=== PATIENT | female | born 1970 | race Caucasian/White ===

== ENCOUNTER → 2017-11-30 | Outpatient (CLI) | payer MEDICARE, MEDICAID | LOC: COL.RAD 13:03 | DX: R10.84 Generalized abdominal pain (principal); Z87.19 Personal history of other diseases of the digestive system; Z85.528 Personal history of other malignant neoplasm of kidney; Z90.49 Acquired absence of other specified parts of digestive tract; Z90.5 Acquired absence of kidney | CPT/HCPCS: Q9967 ==

== ENCOUNTER → 2017-12-29 | Outpatient (CLI) | payer MEDICARE, MEDICAID | LOC: COL.RAD 08:58 | DX: K85.90 Acute pancreatitis without necrosis or infection, unspecified (principal); K76.89 Other specified diseases of liver; R16.0 Hepatomegaly, not elsewhere classified; Z90.5 Acquired absence of kidney; Z90.49 Acquired absence of other specified parts of digestive tract; K82.9 Disease of gallbladder, unspecified ==

== ENCOUNTER → 2018-03-08 | Outpatient (CLI) | payer MEDICARE, MEDICAID ==
[~2018-03-08] VITALS: Ht 157.5 cm; Wt 154.7 kg
[~2018-03-08] MED LIST: ALBUTEROL0.83 MG/ML IH; BREO IH; CHANTIX 1MG1 MG PO; COREG 25MG25 MG/TAB PO; GLUCOPHAGE850 MG/TAB PO; MIRAPEX1.5 MG PO; NEURONTIN300 MG/CAP PO; PRINZIDE 12.5 M1 TAB PO; PROTONIX 40MG T40 MG PO; PROVENTIL0.09 MG/A1 IH; PROZAC40 MG PO; SYNTHROID0.075 MG/T PO
[2018-03-08 08:21] VITALS: BP 80/50; PULSE 72
== END ==
LOC: LIGHT 07:52
DX: E11.9 Type 2 diabetes mellitus without complications (principal); M79.1 Myalgia; E66.01 Morbid (severe) obesity due to excess calories; Z71.3 Dietary counseling and surveillance
CPT/HCPCS: G0463

== ENCOUNTER → 2018-04-12 | Outpatient (CLI) | payer MEDICARE, MEDICAID ==
[~2018-04-12] VITALS: Ht 157.5 cm; Wt 153.3 kg
[2018-04-12 10:31] VITALS: BP 90/60; PULSE 60
== END ==
LOC: LIGHT 04-03 14:14
DX: E88.81 Metabolic syndrome and other insulin resistance (principal); E11.9 Type 2 diabetes mellitus without complications; M79.10 Myalgia, unspecified site; E66.01 Morbid (severe) obesity due to excess calories; Z68.44 Body mass index [BMI] 60.0-69.9, adult; Z71.3 Dietary counseling and surveillance
CPT/HCPCS: G0463

== ENCOUNTER → 2018-04-24 | Outpatient (CLI) | payer MEDICARE, MEDICAID ==
[~2018-04-24] VITALS: Ht 157.5 cm; Wt 154.4 kg
== END ==
LOC: LIGHT 11:18
DX: E88.81 Metabolic syndrome and other insulin resistance (principal); E11.65 Type 2 diabetes mellitus with hyperglycemia; M79.10 Myalgia, unspecified site; E66.01 Morbid (severe) obesity due to excess calories; Z68.44 Body mass index [BMI] 60.0-69.9, adult; Z71.3 Dietary counseling and surveillance

== ENCOUNTER → 2018-05-17 | Outpatient (CLI) | payer MEDICARE, MEDICAID ==
[~2018-05-17] VITALS: Ht 157.5 cm; Wt 154.0 kg
[~2018-05-17] MED LIST changes: +FASTIN30 MG PO
[2018-05-17 10:01] VITALS: BP 124/70; PULSE 64
== END ==
LOC: LIGHT 09:48
DX: E88.81 Metabolic syndrome and other insulin resistance (principal); M79.10 Myalgia, unspecified site; E66.01 Morbid (severe) obesity due to excess calories; Z68.44 Body mass index [BMI] 60.0-69.9, adult; Z71.3 Dietary counseling and surveillance
CPT/HCPCS: G0463

== ENCOUNTER → 2018-06-21 | Outpatient (CLI) | payer MEDICARE, MEDICAID ==
[~2018-06-21] VITALS: Ht 157.5 cm; Wt 148.3 kg
[2018-06-21 13:47] VITALS: BP 100/70; PULSE 76
== END ==
LOC: LIGHT 13:32
DX: E88.81 Metabolic syndrome and other insulin resistance (principal); E11.65 Type 2 diabetes mellitus with hyperglycemia; M79.7 Fibromyalgia; E66.01 Morbid (severe) obesity due to excess calories; Z68.43 Body mass index [BMI] 50.0-59.9, adult; Z71.3 Dietary counseling and surveillance
CPT/HCPCS: G0463

== ENCOUNTER → 2018-07-04 | Outpatient (CLI) | payer MEDICARE, MEDICAID | LOC: COL.RAD 08:44 | DX: E11.9 Type 2 diabetes mellitus without complications (principal); M47.814 Spondylosis without myelopathy or radiculopathy, thoracic region; R91.8 Other nonspecific abnormal finding of lung field; R59.0 Localized enlarged lymph nodes; Z90.49 Acquired absence of other specified parts of digestive tract | CPT/HCPCS: Q9967 ==

== ENCOUNTER → 2018-09-06 | Outpatient (CLI) | payer MEDICARE, MEDICAID ==
[~2018-09-06] VITALS: Ht 157.5 cm; Wt 145.1 kg
[~2018-09-06] MED LIST changes: +LAMICTAL XR50 MG PO; -PROZAC40 MG PO; +PROZAC60 MG PO
[2018-09-06 10:20] VITALS: BP 118/72; PULSE 68
== END ==
LOC: LIGHT 08-02 14:48
DX: E88.81 Metabolic syndrome and other insulin resistance (principal); E11.65 Type 2 diabetes mellitus with hyperglycemia; M79.18 Myalgia, other site; E66.01 Morbid (severe) obesity due to excess calories; Z71.3 Dietary counseling and surveillance

== ENCOUNTER → 2018-10-04 | Outpatient (CLI) | payer MEDICARE, MEDICAID ==
[~2018-10-04] VITALS: Ht 157.5 cm; Wt 146.7 kg
[2018-10-04 10:12] VITALS: BP 114/70; PULSE 60
== END ==
LOC: LIGHT 10:01
DX: E88.81 Metabolic syndrome and other insulin resistance (principal); E11.65 Type 2 diabetes mellitus with hyperglycemia; M79.18 Myalgia, other site; E66.01 Morbid (severe) obesity due to excess calories; Z68.43 Body mass index [BMI] 50.0-59.9, adult; Z71.3 Dietary counseling and surveillance
CPT/HCPCS: G0463

== ENCOUNTER → 2018-11-01 | Outpatient (CLI) | payer MEDICARE, MEDICAID ==
[~2018-11-01] VITALS: Ht 157.5 cm; Wt 148.8 kg
[2018-11-01 14:43] VITALS: BP 106/66; PULSE 68
== END ==
LOC: LIGHT 14:24
DX: E88.81 Metabolic syndrome and other insulin resistance (principal); E11.65 Type 2 diabetes mellitus with hyperglycemia; M79.18 Myalgia, other site; E66.01 Morbid (severe) obesity due to excess calories; Z68.44 Body mass index [BMI] 60.0-69.9, adult; Z71.3 Dietary counseling and surveillance
CPT/HCPCS: G0463

== ENCOUNTER → 2018-12-06 | Outpatient (CLI) | payer MEDICARE, MEDICAID ==
[~2018-12-06] VITALS: Ht 157.5 cm; Wt 148.8 kg
[2018-12-06 16:22] VITALS: BP 106/64; PULSE 68
== END ==
LOC: LIGHT 15:59
DX: E88.81 Metabolic syndrome and other insulin resistance (principal); E11.65 Type 2 diabetes mellitus with hyperglycemia; M79.10 Myalgia, unspecified site; E66.01 Morbid (severe) obesity due to excess calories; Z68.44 Body mass index [BMI] 60.0-69.9, adult; Z71.3 Dietary counseling and surveillance
CPT/HCPCS: G0463

== ENCOUNTER → 2018-12-06 | Outpatient (CLI) | payer MEDICARE, MEDICAID | LOC: COL.RAD 08:18 | DX: M43.06 Spondylolysis, lumbar region (principal); K76.9 Liver disease, unspecified; R16.2 Hepatomegaly with splenomegaly, not elsewhere classified; Z87.19 Personal history of other diseases of the digestive system; Z90.5 Acquired absence of kidney; Z90.49 Acquired absence of other specified parts of digestive tract; Z96.642 Presence of left artificial hip joint | CPT/HCPCS: Q9967 ==

== ENCOUNTER → 2019-01-17 | Outpatient (CLI) | payer MEDICARE, MEDICAID ==
[~2019-01-17] VITALS: Ht 157.5 cm; Wt 148.8 kg
[~2019-01-17] MED LIST changes: +ADIPEX-P37.5 MG PO; -FASTIN30 MG PO; +TOPAMAX 25MG25 M1 PO
[2019-01-17 15:17] VITALS: BP 102/64; PULSE 80
== END ==
LOC: LIGHT 14:48
DX: E88.81 Metabolic syndrome and other insulin resistance (principal); E11.65 Type 2 diabetes mellitus with hyperglycemia; M79.18 Myalgia, other site; E66.01 Morbid (severe) obesity due to excess calories; Z68.43 Body mass index [BMI] 50.0-59.9, adult; Z71.3 Dietary counseling and surveillance
CPT/HCPCS: G0463

== ENCOUNTER → 2019-02-14 | Outpatient (CLI) | payer MEDICARE, MEDICAID ==
[~2019-02-14] VITALS: Ht 157.5 cm; Wt 149.9 kg
[~2019-02-14] MED LIST changes: +TOPAMAX50 MG PO
[2019-02-14 14:16] VITALS: BP 104/78; PULSE 76
== END ==
LOC: LIGHT 14:06
DX: E88.81 Metabolic syndrome and other insulin resistance (principal); E11.65 Type 2 diabetes mellitus with hyperglycemia; M79.18 Myalgia, other site; E66.01 Morbid (severe) obesity due to excess calories; Z68.44 Body mass index [BMI] 60.0-69.9, adult; Z71.3 Dietary counseling and surveillance
CPT/HCPCS: G0463

== ENCOUNTER 2019-04-22 07:28 | Day surgery (SDC) | payer MEDICARE, MEDICAID ==
[~2019-04-22] VITALS: Ht 157.5 cm; Wt 151.0 kg
[2019-04-22 08:24] VITALS: BP 132/90; PULSE 66; TEMP 97.7
[2019-04-22 09:10] VITALS: BP 135/95; PULSE 62
--- NOTE | 2019-04-22 09:10 | NUR ---
Pt arrived from procedure room awake, alert, and oriented. Ambulated easily from cart to chair and states she's already "ready to get going." VSS and WNL. Pt denies pain, n/v. Water and crackers brought per pt's request.
[2019-04-22 09:25] VITALS: BP 149/93; PULSE 93
--- NOTE | 2019-04-22 09:25 | NUR ---
Pt states that she is ready to go home. Educated pt that she should stay 30 mins post procedure for monitoring. She agrees. Andre brought per her request. denies n/v.
[2019-04-22 09:40] VITALS: BP 150/62; PULSE 85
--- NOTE | 2019-04-22 09:40 | NUR ---
Reviewed discharge information with patient. She has no concerns and expresses understanding of the information. Advised pt on how to contact someone if concerns/questions do arise.
[2019-04-22 09:45] VITALS: BP 127/74; PULSE 85
--- NOTE | 2019-04-22 09:53 | NUR ---
Pt ready to go home, and she meets discharge criteria. BP rechecked and WNL. Pt discharged via wheelchair with RN with Jonathan, colt. Reviewed with patient that H.Pylori was negative. Pt has no further questions or concerns at this time.
== END 2019-04-22 09:55 | disposition home or self-care (01) ==
LOC: SDCO 07:28
DX: E88.81 Metabolic syndrome and other insulin resistance (principal); E66.01 Morbid (severe) obesity due to excess calories; Z68.43 Body mass index [BMI] 50.0-59.9, adult; K21.9 Gastro-esophageal reflux disease without esophagitis; E11.8 Type 2 diabetes mellitus with unspecified complications; R91.8 Other nonspecific abnormal finding of lung field; J44.9 Chronic obstructive pulmonary disease, unspecified; J45.909 Unspecified asthma, uncomplicated; Z87.891 Personal history of nicotine dependence; I51.7 Cardiomegaly; R16.2 Hepatomegaly with splenomegaly, not elsewhere classified; Z96.642 Presence of left artificial hip joint; Z96.651 Presence of right artificial knee joint; Z90.5 Acquired absence of kidney; Z90.49 Acquired absence of other specified parts of digestive tract; Z90.710 Acquired absence of both cervix and uterus; E03.9 Hypothyroidism, unspecified; M79.7 Fibromyalgia; F32.9 Major depressive disorder, single episode, unspecified; F41.1 Generalized anxiety disorder; Z85.528 Personal history of other malignant neoplasm of kidney; G25.81 Restless legs syndrome; E28.2 Polycystic ovarian syndrome; G47.33 Obstructive sleep apnea (adult) (pediatric); F50.81 Binge eating disorder; M19.90 Unspecified osteoarthritis, unspecified site; Z79.899 Other long term (current) drug therapy; Z79.84 Long term (current) use of oral hypoglycemic drugs; Z88.8 Allergy status to other drugs, medicaments and biological substances; K29.30 Chronic superficial gastritis without bleeding
CPT/HCPCS: J2704; J7030

== ENCOUNTER 2019-05-02 08:08 | Day surgery (SDC) | payer MEDICARE, MEDICAID ==
[2019-05-02] VITALS (11 sets, daily range): BP systolic 99–1014; BP diastolic 46–90; PULSE 55–70; TEMP 97.6
[~2019-05-02] VITALS: Ht 157.5 cm; Wt 151.4 kg
[~2019-05-02 08:08] MED LIST changes: +GLUCOPHAGE500 MG/TAB PO; -GLUCOPHAGE850 MG/TAB PO; -NEURONTIN300 MG/CAP PO; +NEURONTIN600 MG/TAB PO
[2019-05-02 08:58] LABS: HEMOGLOBIN 12.8 g/dl (12.5-16.0); MEAN CELL VOLUME 88 fl (80.0-100.0); MEAN CORPUSCULAR HEMOGLOBIN 27 pg (27.0-31.0); MEAN CORPUSCULAR HGB CONC 31 g/dl (33.0-37.0); MEAN PLATELET VOLUME 10.9 fl (7.4-10.4); PLATELET COUNT 213 K/mm3 (130-400); RED BLOOD COUNT 4.67 M/mm3 (4.10-5.30); REDCELL DISTRIBUTION WIDTH-CV 14.2 % (11.5-14.5)
[2019-05-02 09:04] LABS: INR 0.9 (0.8-3.0); PROTHROMBIN TIME 10.8 SECONDS (9.7-12.8)
[2019-05-02 09:07] LABS: PARTIAL THROMBOPLASTIN TIME 32.6 SECONDS (26.0-37.0)
[2019-05-02 09:12] LABS: CALCIUM 9.1 mg/dL (8.4-10.2); CREATININE, serum 0.83 (0.52-1.25); POTASSIUM 4.4 mmol/L (3.4-5.0)
[2019-05-02] MEDS ORDERED: LEVAQUIN 5500 MG/TA1 PO (09:26)
[2019-05-02] MEDS ORDERED: NORCO 325 MG-7.1 TAB PO (09:27)
--- NOTE | 2019-05-02 10:34 | NUR ---
SEE MERGE DOCUMENTATION FOR MEDICATION ADMINISTRATION TIMES AND INTRA/POST PROCEDURE SEDATION ASSESSMENTS.
--- NOTE | 2019-05-02 11:15 | NUR ---
PT back from clinical laboratory manager. bs report received from Arun ROBLES. Pt is drowsy, falling asleep easily, pt did report hx narcolepsy, and prior to procedure was noted to doze off easily. TR band present to right wrist. puncture site visualized through band with no bleeding noted. no bruising or hematoma appreciated proximal or distal to band, cms intact to fingers, equipment services associate brisk, no numbness or tingling reported, good pleth with pulse ox on rt index finger. pt c/o some discomfort at puncture site where the band is applying pressure. Green dot on band is proximal to site, and slightly medial to puncture site. wctm.
--- NOTE | 2019-05-02 14:20 | NUR ---
Pt is anxious to go home, rt radial puncture site looks good with no bleeding or hematoma formation. TR band has been removed, site dressed with a bandaid, and also has a 2x2 wrapped with coban which pt will remove when she gets home. I reviewed discharge instructions with pt related to follow up, site care, activity restrictions and sedation. PT verbalized understanding. We will monitor site for about 20 more minutes then plan for dc if free of bleeding/hematoma.
--- NOTE | 2019-05-02 14:40 | NUR ---
pt was escorted to exit via wheelchair in the company of her friends who are driving her home. pt denied any questions or concerns at time of departure. IV was dc'd with cath intact, dressing was applied prior to her discharge. pt did wear splint on rt wrist to help remind her not to overuse her wrist, particularly because she did have surgery on her left wrist for carpal tunnel release yesterday. Site looked good without bleeding or hematoma prior to her departure.
== END 2019-05-02 14:50 | disposition home or self-care (01) ==
LOC: COL.CAR 08:08
PROVIDERS: Internal Medicine Cardiovascular Disease
DX: I50.9 Heart failure, unspecified (principal); R94.39 Abnormal result of other cardiovascular function study; F41.9 Anxiety disorder, unspecified; J44.9 Chronic obstructive pulmonary disease, unspecified; F32.9 Major depressive disorder, single episode, unspecified; M79.7 Fibromyalgia; K21.9 Gastro-esophageal reflux disease without esophagitis; I11.0 Hypertensive heart disease with heart failure; E03.9 Hypothyroidism, unspecified; D50.9 Iron deficiency anemia, unspecified; G47.33 Obstructive sleep apnea (adult) (pediatric); M19.90 Unspecified osteoarthritis, unspecified site; G89.29 Other chronic pain; E11.42 Type 2 diabetes mellitus with diabetic polyneuropathy; Z90.49 Acquired absence of other specified parts of digestive tract; Z90.710 Acquired absence of both cervix and uterus; Z90.722 Acquired absence of ovaries, bilateral; Z90.79 Acquired absence of other genital organ(s); Z85.528 Personal history of other malignant neoplasm of kidney; Z88.1 Allergy status to other antibiotic agents; Z88.8 Allergy status to other drugs, medicaments and biological substances; Z91.030 Bee allergy status; Z79.84 Long term (current) use of oral hypoglycemic drugs; Z87.891 Personal history of nicotine dependence; Z82.49 Family history of ischemic heart disease and other diseases of the circulatory system
CPT/HCPCS: C1769; J1644; J2250; J3010; Q9967

== ENCOUNTER 2019-05-15 09:39 | Inpatient (IN) | payer MEDICARE, MEDICAID ==
[~2019-05-15] VITALS: Ht 157.5 cm; Wt 153.4 kg
[~2019-05-15 09:39] MED LIST changes: +LEVAQUIN 5500 MG/TA1 PO; +NORCO 325 MG-7.1 TAB PO
[2019-05-29] VITALS (391 sets, daily range): BP systolic 138–156; BP diastolic 81–97; PULSE 70–95; TEMP 97.8–99.7; O2SAT 90–98
--- NOTE | 2019-05-29 06:35 | NUR ---
The patient ambulated back to [place] [facility] independently using a steady gait and appeared to tolerate the activity well. Vital signs obtained. Consent signed. 18G IV started in left hand with one stick, LR infusing without difficulty. Blood sugar checked with blood from IV start with a result of 129. Heart Reg. Lungs clear. Bowel sounds audible. Call light is within reach. Friend, Annemarie, brought back to be at her bedside. The patient denies any needs at this time. Will continue to monitor the patient.
--- NOTE | 2019-05-29 07:20 | NUR ---
The patient was taken back to the operating room via cart at this time. The patient's chart was sent with her to surgery and the patient's friend is going to go back to the waiting room to receive updates from the OR nurse throughout the surgery. The patient's belongings were taken over the recovery room and will be transferred with the patient to her post operative room.
[2019-05-29 11:45] LABS: BASO % 0.2 % (0.0-2.0); EOS % 0.3 % (0-4.0); GRAN % 86.7 % (42.2-75.2); HEMATOCRIT 43.9 % (37.0-47.0); HEMOGLOBIN 13.8 g/dl (12.5-16.0); LYMPH # 1.1 (1.2-3.4); MEAN CELL VOLUME 89 fl (80.0-100.0); MEAN CORPUSCULAR HEMOGLOBIN 28 pg (27.0-31.0); MEAN CORPUSCULAR HGB CONC 31 g/dl (33.0-37.0); MEAN PLATELET VOLUME 11.3 fl (7.4-10.4); MONO # 0.4 (0.1-0.6); MONO % 3.5 % (1.7-9.3); PLATELET COUNT 216 K/mm3 (130-400); RED BLOOD COUNT 4.96 M/mm3 (4.10-5.30); REDCELL DISTRIBUTION WIDTH-CV 14.3 % (11.5-14.5)
--- NOTE | 2019-05-29 12:15 | NUR ---
PATIENT ARRIVES FROM OR AT THIS TIME. SHE IS SLEEPY, BUT WAKES EASILY AND COMMUNICATES CLEARLY. OP SITES EXAMINED. NO OOZING OR DRAINAGE. CARE TAKEN OVER AT THIS TIME.
--- NOTE | 2019-05-29 12:45 | NUR ---
PATIENT PLACED ON CPAP AT THIS TIME PER HER REQUEST
--- NOTE | 2019-05-29 15:30 | NUR ---
Patient is upset at this time because we are keeping her strict NPO. She states that the Clinic nurse, Karina, told her she would be getting the "gatorade test" today after surgery and then she would be able to drink. I explain to her that the test will be the morning after surgery, as it standard procedure for all patients that receive the crystal-en-y surgery. She becomes emotional and starts crying. Emotional support given.
--- NOTE | 2019-05-29 19:00 | NUR ---
RECEIVED REPORT FROM MARGARET ACOSTA. PT SITTING UP IN CHAIR AT THIS TIME. FEED PREPARATION OPERATOR PUMP IN REACH. CALL LIGHT WITHIN REACH. FC PATENT AND DRAINING TO GRAVITY. VSS. PT REMINDED THAT SHE IS ONLY TO USE MOUTH SWABS AND IS ON STRICT NPO TILL THE MORNING. VERBALIZED UNDERSTANDING.
--- NOTE | 2019-05-29 19:02 | NUR ---
REPORT TO MARGARET INMAN AT THIS TIME.
--- NOTE | 2019-05-29 22:15 | NUR ---
PT PLACED ON CPAP TO SLEEP AT THIS TIME.
[2019-05-30] VITALS (366 sets, daily range): BP systolic 107–132; BP diastolic 65–89; PULSE 70–88; TEMP 97.4–98.7; O2SAT 89–99
--- NOTE | 2019-05-30 02:17 | NUR ---
RT AT BEDSIDE PLACING PT ON 2L NC WITH CPAP MACHINE. POX NOTED TO BE DROPPING TO 87% WHILE PT SLEEPS. PT AROUSES EASILY AND SPEAKS TO NURSE. PT DENIES ANY NEEDS. FALLS BACK TO SLEEP EASILY. CALL LIGHT WITHIN REACH. FC PATENT AND DRAINING TO GRAVITY.
--- NOTE | 2019-05-30 08:00 | NUR ---
Shift assessment complete at this time. Plan of care reviewed at bedside with patient. Additional time taken to address any other needs or concerns. Vitals stable at this time. Pt reports moderate LUQ abdominal pain at 6/10 severity. Pt currently on Dilaudid POLICE COMMISSIONER that manages pain well when not transitioning from bed/chair to standing. Surgical lab sites clean, dry, et intact with no drainage noted. Bed in low position, call light within reach, will continue to monitor.
--- NOTE | 2019-05-30 09:21 | NUR ---
Initial visit; Gas Meter Repairer introduced herself to patient, offering spiritual care. Patient declined at this time. Gas Meter Repairer wished Arleth well.
[2019-05-30 09:24] LABS: BASO # 0.1 (0.0-0.2); BASO % 0.4 % (0.0-2.0); EOS # 0.2 (0.0-0.7); EOS % 1.1 % (0-4.0); GRAN # 11.5 (1.4-6.5); GRAN % 82.3 % (42.2-75.2); HEMATOCRIT 42.3 % (37.0-47.0); HEMOGLOBIN 13.3 g/dl (12.5-16.0); LYMPH # 1.4 (1.2-3.4); LYMPH % 9.9 % (20.0-51.0); MEAN CELL VOLUME 88 fl (80.0-100.0); MEAN CORPUSCULAR HEMOGLOBIN 28 pg (27.0-31.0); MEAN CORPUSCULAR HGB CONC 31 g/dl (33.0-37.0); MEAN PLATELET VOLUME 11.3 fl (7.4-10.4); MONO # 0.8 (0.1-0.6); MONO % 5.9 % (1.7-9.3); PLATELET COUNT 264 K/mm3 (130-400); RED BLOOD COUNT 4.79 M/mm3 (4.10-5.30); REDCELL DISTRIBUTION WIDTH-CV 14.5 % (11.5-14.5)
[2019-05-30 09:32] LABS: BILIRUBIN,TOTAL 0.3 mg/dL (0.0-1.0); CALCIUM 9.4 mg/dL (8.4-10.2); CREATININE, serum 0.82 (0.52-1.25); POTASSIUM 4.4 mmol/L (3.4-5.0); TOTAL PROTEIN 7.1 gm/dL (6.4-8.2)
--- NOTE | 2019-05-30 09:53 | NUR ---
MACHINE CAGE MAKER student met with the patient to dsicuss a discharge plan. The patient lives with friends in [place]. The patient has a cane and reports indepedence with ADLs. The patient's PCP is Dr. Villa and patient receives medications from [facility]. The patient does not have advanced directives in the EMR but reports they completed and designate her daughter, Ebony Garcia. The patient plans to return home upon discharge with one of her friends providing transportation. There are no additional needs at this time.
--- NOTE | 2019-05-30 12:00 | NUR ---
Pt Reports moderate lingering pain in LUQ, basal REGIONAL HR MANAGER rate initated per physician orders. Vitals stable at this time. Pt up ambulating in wylie at this time. Pt additionall ambulates with patino bag above head attached to IV pole. Pt informed that this could potentially reintroduce bacteria into the bladder and that the patino bag should remain at or below bladder level. Pt refused instructions and proceeds to keep bag above head level. Will continue to monitor.
--- NOTE | 2019-05-30 16:00 | NUR ---
Patient has been brought up from ICU. We sat her up in the recliner. She denies pain. She said sometimes when moving she has pain to her left upper abdomen. Dressings to abdomen are C/D/I. She has a ASSISTANT MANAGER QUALITY MANAGEMENT for pain control. oriented patient to room. No other changes at this time. Call light within reach.
--- NOTE | 2019-05-30 20:42 | NUR ---
Sitting up in chair. Denies pain at this time. TRANSLITERATOR in place and available for patient to use as needed. Lap site dressings x5 CDI. TAMAR drain to left upper abdomen compresed with small amount bloody drainage. Would like to stay in recliner chair as this is providing her the most comfort. Denies further needs at this time.
--- NOTE | 2019-05-30 23:04 | NUR ---
Lying in recliner chair with eyes closed. Respirations even and unlabored. No signs or symptoms of discomfort noted at this time.
[2019-05-31] VITALS (8 sets, daily range): BP systolic 90–144; BP diastolic 43–75; PULSE 60–91; TEMP 97–98
--- NOTE | 2019-05-31 01:40 | NUR ---
Sitting up in chair sleeping. Eyes open when name called out. Denies pain. Has SCALER to use if needed. Ambulates to bathroom, voids and has trace BM. Returns to chair to sleep. Reapplies CPAP. Denies further needs at this time.
--- NOTE | 2019-05-31 05:01 | NUR ---
Sitting up in chair sleeping. Denies pain. STORE OPERATIONS ASSOCIATE available to patient if needed. Patient denies any needs or concerns at this time.
--- NOTE | 2019-05-31 06:27 | NUR ---
Sitting up in chair with eyes closed. Respirations even and unlabored. No signs or symptoms of discomfort noted. COMMUNITY HEALTH PROGRAM REPRESENTATIVE available if patient needs medication for pain.
[2019-05-31 09:21] LABS: BASO % 0.1 % (0.0-2.0); EOS # 0.4 (0.0-0.7); EOS % 3.9 % (0-4.0); GRAN # 6.9 (1.4-6.5); GRAN % 74.4 % (42.2-75.2); HEMATOCRIT 37.4 % (37.0-47.0); HEMOGLOBIN 11.6 g/dl (12.5-16.0); LYMPH # 1.4 (1.2-3.4); LYMPH % 15.5 % (20.0-51.0); MEAN CELL VOLUME 88 fl (80.0-100.0); MEAN CORPUSCULAR HEMOGLOBIN 27 pg (27.0-31.0); MEAN CORPUSCULAR HGB CONC 31 g/dl (33.0-37.0); MEAN PLATELET VOLUME 11.2 fl (7.4-10.4); MONO # 0.5 (0.1-0.6); MONO % 5.8 % (1.7-9.3); PLATELET COUNT 223 K/mm3 (130-400); RED BLOOD COUNT 4.23 M/mm3 (4.10-5.30); REDCELL DISTRIBUTION WIDTH-CV 14.3 % (11.5-14.5)
[2019-05-31 09:29] LABS: ALBUMIN 3.5 gm/dL (3.5-5.0); BILIRUBIN,TOTAL 0.4 mg/dL (0.0-1.0); CREATININE, serum 0.78 (0.52-1.25); POTASSIUM 4.6 mmol/L (3.4-5.0); TOTAL PROTEIN 6.4 gm/dL (6.4-8.2)
--- NOTE | 2019-05-31 10:15 | NUR ---
Dr Talamantes here to see patient.
--- NOTE | 2019-05-31 10:49 | NUR ---
Patient alert and oriented, answers questions appropriately. See assessment. Abdomen soft, non tender, non distended. Bowel sounds active x4 quads. +Flatus. +Bowel movement. Abdomen lap sites with edges well approximated, no redness or drainage noted. TAMAR to LLQ compressed and draining serosanguinous fluid. Post op exercises reviewed. No c/o at this time..
--- NOTE | 2019-05-31 20:00 | NUR ---
Patient ambulating in hallway with steady gait. Reports good pain relief with [place]. TAMAR with serosanguinous drainage, bulb suction. Lap sites glued, D/I. Has SL to left hand without redness or swelling.
--- NOTE | 2019-05-31 22:17 | NUR ---
Medicated with [place] 1 tab at this time for abdominal discomfort. Has CPAP on for sleep. Will remain in chair for night.
[2019-06-01 00:10] VITALS: BP 93/52; PULSE 65; TEMP 97.6
[2019-06-01 04:41] VITALS: BP 108/69; PULSE 72; TEMP 97.3
--- NOTE | 2019-06-01 06:57 | NUR ---
Ambulating in hallway with steady gait. Took [place] at 0445 for abdominal discomfort with good relief.
[2019-06-01 08:15] VITALS: BP 112/68; PULSE 78; TEMP 98.6
--- NOTE | 2019-06-01 09:00 | NUR ---
Pt doing well, she is sitting up in the chair with minimal complaints. She states the site where the drain is is what is giving her the most trouble. She states mostly when she is moving. Pain medication given. She has tolerated her diet and is aware of her diet restrictions. No other needs at this time, will continue to monitor
[2019-06-01 09:21] LABS: BASO % 0.4 % (0.0-2.0); EOS # 0.3 (0.0-0.7); EOS % 4.8 % (0-4.0); GRAN # 4.1 (1.4-6.5); HEMOGLOBIN 10.8 g/dl (12.5-16.0); LYMPH # 0.8 (1.2-3.4); LYMPH % 13.2 % (20.0-51.0); MEAN CELL VOLUME 88 fl (80.0-100.0); MEAN CORPUSCULAR HEMOGLOBIN 28 pg (27.0-31.0); MEAN CORPUSCULAR HGB CONC 32 g/dl (33.0-37.0); MEAN PLATELET VOLUME 11.4 fl (7.4-10.4); MONO # 0.5 (0.1-0.6); MONO % 8.1 % (1.7-9.3); PLATELET COUNT 166 K/mm3 (130-400); RED BLOOD COUNT 3.89 M/mm3 (4.10-5.30); REDCELL DISTRIBUTION WIDTH-CV 13.8 % (11.5-14.5)
[2019-06-01 09:22] LABS: HEMATOCRIT 34.1 % (37.0-47.0)
[2019-06-01 09:26] LABS: ALBUMIN 3.3 gm/dL (3.5-5.0); BILIRUBIN,TOTAL 0.6 mg/dL (0.0-1.0); CREATININE, serum 0.75 (0.52-1.25)
[2019-06-01] MEDS ORDERED: ZOFRAN 4MG T4 MG/TAB PO (09:56)
[2019-06-01] MEDS ORDERED: NORCO 325 MG-51 TAB PO (09:56)
--- NOTE | 2019-06-01 10:48 | NUR ---
Dr Talamantes has been in to see patient. She is dressed and ready to go stating her ride is on their way. Informed her that I would finish paperwork and would be in. INT removed. no other needs.
--- NOTE | 2019-06-01 11:01 | NUR ---
Reviewed discharge instuctions with patient. Informed her to notify nursing when her ride is available. There is some output on her TAMAR dressing, it has not increased since the TAMAR was removed.
== END 2019-06-01 11:30 | disposition home or self-care (01) | DRG 621 ==
LOC: INPTSU 05-29 05:48 → SURG 05-29 07:30 → ICU 05-29 13:06 → SURG 05-30 15:17
PROVIDERS: ADMIT Surgery
PROC: 0DNU4ZZ Release Omentum, Percutaneous Endoscopic Approach (ICD-10-PCS; 2019-05-29)
PROC: 8E0W4CZ Robotic Assisted Procedure of Trunk Region, Percutaneous Endoscopic Approach (ICD-10-PCS; 2019-05-29)
PROC: 0D164ZA Bypass Stomach to Jejunum, Percutaneous Endoscopic Approach (ICD-10-PCS; principal; 2019-05-29 07:30)
DX: E66.01 Morbid (severe) obesity due to excess calories (principal); E11.9 Type 2 diabetes mellitus without complications; K21.9 Gastro-esophageal reflux disease without esophagitis; Z96.642 Presence of left artificial hip joint; Z96.651 Presence of right artificial knee joint; E03.9 Hypothyroidism, unspecified; F41.1 Generalized anxiety disorder; F32.9 Major depressive disorder, single episode, unspecified; G47.33 Obstructive sleep apnea (adult) (pediatric); M19.90 Unspecified osteoarthritis, unspecified site; Z87.891 Personal history of nicotine dependence; Z90.5 Acquired absence of kidney; Z90.89 Acquired absence of other organs; Z90.49 Acquired absence of other specified parts of digestive tract; Z90.710 Acquired absence of both cervix and uterus; Z85.53 Personal history of malignant neoplasm of renal pelvis; Z68.43 Body mass index [BMI] 50.0-59.9, adult
CPT/HCPCS: A4314; C9113; J0330; J0360; J1100; J1170; J1650; J1885; J1956; J2405; J2704; J2710; J3010; J3480; J7120

== ENCOUNTER → 2019-05-27 | Outpatient (CLI) | payer MEDICARE, MEDICAID ==
[~2019-05-27] VITALS: Ht 157.5 cm; Wt 148.3 kg
== END ==
LOC: LIGHT 13:01
DX: E88.81 Metabolic syndrome and other insulin resistance (principal); E11.65 Type 2 diabetes mellitus with hyperglycemia; E66.01 Morbid (severe) obesity due to excess calories; Z68.44 Body mass index [BMI] 60.0-69.9, adult; Z71.3 Dietary counseling and surveillance

== ENCOUNTER → 2019-06-03 | Outpatient (CLI) | payer MEDICARE, MEDICAID ==
[~2019-06-03] VITALS: Ht 157.5 cm; Wt 145.6 kg
[~2019-06-03] MED LIST changes: +NORCO 325 MG-51 TAB PO; +ZOFRAN 4MG T4 MG/TAB PO
[2019-06-03 14:11] VITALS: BP 130/76; PULSE 64
== END ==
LOC: LIGHT 10:07
DX: Z98.84 Bariatric surgery status (principal); E11.65 Type 2 diabetes mellitus with hyperglycemia; M79.18 Myalgia, other site; E66.01 Morbid (severe) obesity due to excess calories; Z68.43 Body mass index [BMI] 50.0-59.9, adult; Z71.3 Dietary counseling and surveillance

== ENCOUNTER → 2019-12-30 | Outpatient (CLI) | payer MEDICARE, MEDICAID ==
[~2019-12-30] VITALS: Ht 157.5 cm; Wt 106.4 kg
[~2019-12-30] MED LIST changes: +ACTIGALL 300MG300 MG PO; +GAS-X ULTRA ST180 MG PO; +PRIL40 PO; +ZESTRIL 10MG10 MG PO
[2019-12-30 14:21] VITALS: BP 146/82; PULSE 64
== END ==
LOC: LIGHT 14:10
DX: E66.01 Morbid (severe) obesity due to excess calories (principal); Z68.41 Body mass index [BMI] 40.0-44.9, adult; Z98.84 Bariatric surgery status; E11.9 Type 2 diabetes mellitus without complications; E88.81 Metabolic syndrome and other insulin resistance
CPT/HCPCS: G0463

== ENCOUNTER 2021-09-20 14:53 | Emergency (ER) | payer MEDICARE, MEDICAID ==
[~2021-09-20] VITALS: Ht 157.5 cm; Wt 104.5 kg
[2021-09-20 14:55] VITALS: TEMP 99.2
[2021-09-20 15:46] LABS: BASO % 0.3 % (0.0-2.0); EOS # 0.1 K/mm3 (0.0-0.7); EOS % 0.9 % (0.0-4.0); GRAN # 6.7 K/mm3 (1.4-6.5); HEMATOCRIT 41.6 % (37.0-47.0); LYMPH # 1.4 K/mm3 (1.2-3.4); LYMPH % 16.2 % (20.0-51.0); MEAN CELL VOLUME 87 fl (80.0-100.0); MEAN CORPUSCULAR HEMOGLOBIN 29 pg (27-31); MEAN CORPUSCULAR HGB CONC 34 g/dl (33.0-37.0); MONO # 0.5 K/mm3 (0.1-0.6); MONO % 5.3 % (1.7-9.3); PLATELET COUNT 202 K/mm3 (130-400); REDCELL DISTRIBUTION WIDTH-CV 13.2 % (11.5-14.5)
[2021-09-20 16:01] LABS: ALBUMIN 3.8 gm/dL (3.5-5.0); BILIRUBIN,TOTAL 0.6 mg/dL (0.2-1.2); C-REACTIVE PROTEIN 0.38 mg/dL (0.00-0.50); CREATININE, serum 0.72 mg/dL (0.57-1.11); POTASSIUM 3.6 mmol/L (3.5-4.5); TOTAL PROTEIN 6.9 gm/dL (6.2-8.1)
[2021-09-20 16:04] LABS: COLLECTION METHOD CLEAN CATCH
[2021-09-20 16:56] LABS: AMORPHOUS CRYSTAL Present (NOT PRESENT); MUCOUS Present (NOT PRESENT); PH 5 (5-8); SQUAMOUS EPITHELIAL 0-2 /hpf (0-10); URINE APPEARANCE Hazy (CLEAR/HAZY); URINE BACTERIA Rare /hpf (NONE SEEN); URINE BILIRUBIN Negative (NEGATIVE); URINE BLOOD Negative (NEGATIVE); URINE COLOR Yellow (YELLOW); URINE GLUCOSE Negative (NEGATIVE); URINE KETONE Trace (NEGATIVE); URINE LEUKOCYTE ESTERASE Negative (NEGATIVE); URINE NITRATE Negative (NEGATIVE); URINE PROTEIN(semi-quant) 1+ (NEGATIVE); URINE RBC 0-2 /hpf (0-2)
[2021-09-20] MEDS ORDERED: ZOFRAN ODT4 MG PO (17:16)
[2021-09-20] MEDS ORDERED: NORCO 325 MG-51 TAB PO (17:16)
[2021-09-20 18:32] VITALS: BP 135/92; PULSE 82
== END 2021-09-20 18:32 | disposition home or self-care (01) ==
LOC: COL.ER 14:53
PROVIDERS: Family Medicine
DX: K52.9 Noninfective gastroenteritis and colitis, unspecified (principal); E66.9 Obesity, unspecified; Z90.49 Acquired absence of other specified parts of digestive tract; Z87.891 Personal history of nicotine dependence; Z68.41 Body mass index [BMI] 40.0-44.9, adult
CPT/HCPCS: C9113; J2270; J2405; J7120

== ENCOUNTER → 2021-09-24 | Outpatient (CLI) | payer MEDICARE, MEDICAID ==
[~2021-09-24] MED LIST changes: +ASPIRIN 81M81 MG/TA2 PO; +CARAFATE S1 GM/10 ML; +COREG12.5 MG; +EUTHYROX25 MCG PO; +FERRO-TIME325 MG PO; +LAMICTAL 100MG100 MG PO; +MIRAPEX 1MG; +NORVASC2.5 MG PO; +PROZAC60 MG; +ZOFRAN ODT4 MG PO
== END ==
LOC: ZCOL.LAB 16:25
DX: R10.13 Epigastric pain (principal)

== ENCOUNTER 2021-09-26 13:24 | Inpatient (IN) | payer MEDICARE, MEDICAID ==
[~2021-09-26] VITALS: Ht 157.5 cm; Wt 101.8 kg
[~2021-09-26 13:24] MED LIST changes: -ASPIRIN 81M81 MG/TA2 PO; -CARAFATE S1 GM/10 ML; -COREG12.5 MG; -EUTHYROX25 MCG PO; -FERRO-TIME325 MG PO; -LAMICTAL 100MG100 MG PO; -MIRAPEX 1MG; -NORVASC2.5 MG PO; -PROZAC60 MG
[2021-09-26 13:55] LABS: COLLECTION METHOD CLEAN CATCH
[2021-09-26 14:16] LABS: MUCOUS Present (NOT PRESENT); PH 5 (5-8); URINE APPEARANCE Hazy (CLEAR/HAZY); URINE BACTERIA Moderate /hpf (NONE SEEN); URINE BILIRUBIN Positive (NEGATIVE); URINE BLOOD 3+ (NEGATIVE); URINE CALCIUM OXALATE CRYSTAL Present (NOT PRESENT); URINE COLOR Amber (YELLOW); URINE GLUCOSE Negative (NEGATIVE); URINE KETONE Trace (NEGATIVE); URINE LEUKOCYTE ESTERASE Negative (NEGATIVE); URINE NITRATE Negative (NEGATIVE); URINE PROTEIN(semi-quant) 1+ (NEGATIVE); URINE UROBILINOGEN >=4.0 (NEGATIVE)
[2021-09-26 14:28] LABS: BASO % 0.4 % (0.0-2.0); EOS # 0.3 K/mm3 (0.0-0.7); EOS % 3.6 % (0.0-4.0); GRAN # 4.6 K/mm3 (1.4-6.5); GRAN % 58.7 % (42.2-75.2); LYMPH # 2.4 K/mm3 (1.2-3.4); LYMPH % 31.1 % (20.0-51.0); MEAN CELL VOLUME 86 fl (80.0-100.0); MEAN CORPUSCULAR HEMOGLOBIN 29 pg (27-31); MEAN CORPUSCULAR HGB CONC 34 g/dl (33.0-37.0); MEAN PLATELET VOLUME 11.5 fl (7.4-10.4); MONO # 0.5 K/mm3 (0.1-0.6); MONO % 5.9 % (1.7-9.3); PLATELET COUNT 229 K/mm3 (130-400); RED BLOOD COUNT 3.77 M/mm3 (4.10-5.30); REDCELL DISTRIBUTION WIDTH-CV 13.3 % (11.5-14.5)
[2021-09-26 14:30] LABS: HEMATOCRIT 32.4 % (37.0-47.0)
[2021-09-26 14:35] LABS: INR 1.1 (0.8-3.0); PROTHROMBIN TIME 11.9 SECONDS (9.7-12.8)
[2021-09-26 14:55] LABS: ALBUMIN 3.5 gm/dL (3.5-5.0); BILIRUBIN,TOTAL 0.5 mg/dL (0.2-1.2); C-REACTIVE PROTEIN 0.78 mg/dL (0.00-0.50); CREATININE, serum 0.83 mg/dL (0.57-1.11); POTASSIUM 4.4 mmol/L (3.5-4.5); TOTAL PROTEIN 6.3 gm/dL (6.2-8.1)
[2021-09-26] MEDS ORDERED: EUTHYROX25 MCG PO ×2 (16:27→16:28)
[2021-09-26] MEDS ORDERED: GLUCOPHAGE500 MG/TAB PO (16:31)
[2021-09-26] MEDS ORDERED: PROZAC60 MG (16:32)
[2021-09-26] MEDS ORDERED: LAMICTAL 100MG100 MG PO (16:32)
[2021-09-26] MEDS ORDERED: ASPIRIN 81M81 MG/TA2 PO (16:33)
[2021-09-26] MEDS ORDERED: COREG12.5 MG (16:34)
[2021-09-26] MEDS ORDERED: MIRAPEX 1MG (16:36)
[2021-09-26] MEDS ORDERED: NORVASC2.5 MG PO (16:37)
[2021-09-26] MEDS ORDERED: CARAFATE S1 GM/10 ML (16:38)
--- NOTE | 2021-09-26 17:30 | NUR ---
Pt arrived to room 316. Settled into room. Call light in reach.
[2021-09-26 19:51] VITALS: BP 138/82; PULSE 71; TEMP 97.9
[2021-09-26 20:42] LABS: HEMATOCRIT 28.3 % (37.0-47.0); HEMOGLOBIN 9.4 g/dl (12.5-16.0)
--- NOTE | 2021-09-26 23:47 | NUR ---
Report received from dayshift nurse. Patient is here due to finding blood/blood clots in her stool which started this morning (09/26/21). Patient is sitting quietly in her chair, watching television. Patient is A&Ox4 and pleasant. Full body assessment complete and vitals signs are WNL. Upon shift exchange the patient was eating her evening meal. Physician called to the floor, put in an order for an EGD but since the patient had eaten the procedure was moved to 09/27/21 around noon. Patient continues to have bloody stools thus far in the shift and clots are apparent, there is also a foul odor present. Patient states that the only pain she is having is abdominal cramping. Patient is NPO as of midnight and expresses understanding. No other complaints at this time. Call light within reach.
[2021-09-27] VITALS (7 sets, daily range): BP systolic 97–112; BP diastolic 58–71; PULSE 58–80; TEMP 97.9–98.9
[2021-09-27 01:09] LABS: HEMATOCRIT 28.5 % (37.0-47.0); HEMOGLOBIN 9.3 g/dl (12.5-16.0)
--- NOTE | 2021-09-27 01:39 | NUR ---
Patient NPO as of midnight. Patient expresses understanding. Call light within reach.
--- NOTE | 2021-09-27 02:26 | NUR ---
New order for IV fluids acknowledged. NS running at 75ml/hr in the left AC.
[2021-09-27 06:37] LABS: BASO % 0.5 % (0.0-2.0); EOS # 0.2 K/mm3 (0.0-0.7); EOS % 4.1 % (0.0-4.0); GRAN # 2.6 K/mm3 (1.4-6.5); GRAN % 44.2 % (42.2-75.2); LYMPH # 2.6 K/mm3 (1.2-3.4); LYMPH % 44.9 % (20.0-51.0); MEAN CELL VOLUME 89 fl (80.0-100.0); MEAN CORPUSCULAR HGB CONC 33 g/dl (33.0-37.0); MEAN PLATELET VOLUME 12.1 fl (7.4-10.4); MONO # 0.4 K/mm3 (0.1-0.6); MONO % 6.1 % (1.7-9.3); PLATELET COUNT 183 K/mm3 (130-400); RED BLOOD COUNT 3.11 M/mm3 (4.10-5.30); REDCELL DISTRIBUTION WIDTH-CV 13.4 % (11.5-14.5)
[2021-09-27 06:47] LABS: HEMATOCRIT 27.8 % (37.0-47.0); HEMOGLOBIN 9.2 g/dl (12.5-16.0); MEAN CORPUSCULAR HEMOGLOBIN 30 pg (27-31)
[2021-09-27 07:02] LABS: ALBUMIN 2.9 gm/dL (3.5-5.0); CALCIUM 8.4 mg/dL (8.4-10.2); CREATININE, serum 0.67 mg/dL (0.57-1.11); MAGNESIUM 1.8 mg/dL (1.6-2.6); PHOSPHOROUS 3.5 mg/dL (2.3-4.7)
--- NOTE | 2021-09-27 09:17 | NUR ---
Initial visit; Patient thanked Manager Spa for offering God's blessings though declined further spiritual care.
--- NOTE | 2021-09-27 11:26 | NUR ---
Veneer Matcher met with patient to discuss discharge planning. Patient lives in [place] with her daughter, Ebony Garcia. Patient states Ebony has four children that also live in the home. Patient sees Dr. Villa for primary care and obtains medications from [facility] with no difficulties. Patient does not use any DME but reports she needs to reschedule her sleep study as she may need a CPAP. Patient is independent with ADLS and plans to return home at time of discharge. Patient reports her daughter, Ebony is her DPOA-HC although there was not a copy in EMR. Discharge Plan: Home
--- NOTE | 2021-09-27 12:20 | NUR ---
PT TAKEN OFF UNIT FOR EGD PROCEDURE.
--- NOTE | 2021-09-27 12:46 | NUR ---
PT ALERT AND ORIENTED UPON ENTRY THIS MORNING. NPO SINCE MIDNIGHT. REMAINS NPO. REPORTS 1 "CLOTTY" STOOL THIS MORNING. NOTIFIED PROVIDER. DENIES PAIN. MORNING ASSESSMENT COMPLETED. NO MEDICATIONS TO BE ADMINISTERED THIS MORNING. FLUIDS CONTINUED RUNNING THROUGHOUT THE MORNING. IV SITES FLUSHED. PT UP IN CHAIR PRIOR TO BE TAKEN OFF UNIT FOR EGD. WILL CONTINUE TO MONITOR PT POST EGD.
--- NOTE | 2021-09-27 13:10 | NUR ---
PT RETURNED FROM EGD. BP 101/71. HR 60. RESTING IN CHAIR. DENIES PAIN. WILL CONTINUE TO MONITOR.
[2021-09-27 13:30] LABS: HEMATOCRIT 27.8 % (37.0-47.0); HEMOGLOBIN 9.3 g/dl (12.5-16.0)
--- NOTE | 2021-09-27 14:18 | NUR ---
SPOKE WITH DR. NEIL REGARDING THE PATIENT'S CONTINUING CLOTTY STOOLSS. HE STATED THE PT WILL MOST LIKELY HAVE A COLONOSCOPY TOMORROW. WILL PUT IN AN ORDER TO MAKE PT ON A CLEAR LIQUID DIET AND NPO AFTER MIDNIGHT.
--- NOTE | 2021-09-27 19:44 | NUR ---
PT REMAINS ALERT AND ORIENTED TODAY. CONTINUES TO HAVE LOOSE BLOODY STOOLS. PLAN IS FOR A COLONOSCOPY TOMORROW. BOWEL PREP ADMINISTERED TO PT. PT IS ON A CLEAR LIQUID DIET AND WILL BE NPO AFTER MIDNIGHT. PT REPORTS A "CRAMPING" PAIN IN ABDOMEN. VITAL SIGNS STABLE. FLUIDS CONTINUING TO RUN. PT REPORTS SHE CONTINUES TO BE CONCERNED ABOUT THE LOOSE BLOODY STOOLS. CONTINUING TO EDUCATE AND CALM PT. NO CONCERNS AT THIS TIME.
[2021-09-28 01:12] LABS: HEMATOCRIT 27.1 % (37.0-47.0); HEMOGLOBIN 9.1 g/dl (12.5-16.0)
[2021-09-28 03:29] VITALS: BP 111/62; PULSE 66; TEMP 98.3
--- NOTE | 2021-09-28 05:43 | NUR ---
ASSESSMENT COMPLETE FOR THIS SHIFT. PT RESTING IN HER RECLINER WATCHING TV. PT COMPLAINED OF ANUS PAIN DUE TO BOWEL PREP/SEVERAL BOWEL MOVEMENTS. HOSPITALIST CALLED DUE TO PT NOT HAVING ANY PAIN RELIEF ORDERED ON SEP. NORCO ORDERED AND GIVEN TO PT. PT FELT NORCO WAS EFFECTIVE. PT ALSO CONCERNED ABOUT BLOODY STOOLS. HOSPITALIST INFORMED. Hgb ORDERED. Hgb DROPPED BY 0.2 (9.3 TO 9.1). VSS, PT NON-SYMPTOMATIC. REASSURED PT. WILL CONTINUE TO MONITOR. PT DENIED PALPITATIONS, N,V, SOB OR DIZZINESS. PT NPO AFTER MID-NIGHT. PT EXPRESSED NO OTHER NEEDS AT THIS TIME. CALL LIGHT WITHIN REACH.
[2021-09-28 06:37] LABS: BASO % 0.4 % (0.0-2.0); EOS # 0.2 K/mm3 (0.0-0.7); EOS % 4.1 % (0.0-4.0); GRAN # 3.3 K/mm3 (1.4-6.5); GRAN % 67.4 % (42.2-75.2); LYMPH % 21.3 % (20.0-51.0); MEAN CELL VOLUME 90 fl (80.0-100.0); MEAN CORPUSCULAR HGB CONC 33 g/dl (33.0-37.0); MEAN PLATELET VOLUME 12.2 fl (7.4-10.4); MONO # 0.3 K/mm3 (0.1-0.6); MONO % 6.4 % (1.7-9.3); PLATELET COUNT 154 K/mm3 (130-400); RED BLOOD COUNT 2.89 M/mm3 (4.10-5.30); REDCELL DISTRIBUTION WIDTH-CV 13.3 % (11.5-14.5)
[2021-09-28 06:39] LABS: HEMOGLOBIN 8.6 g/dl (12.5-16.0); MEAN CORPUSCULAR HEMOGLOBIN 30 pg (27-31)
[2021-09-28 06:47] LABS: CALCIUM 8.4 mg/dL (8.4-10.2); CREATININE, serum 0.7 mg/dL (0.57-1.11); MAGNESIUM 1.7 mg/dL (1.6-2.6); PHOSPHOROUS 3.5 mg/dL (2.3-4.7); POTASSIUM 3.8 mmol/L (3.5-4.5)
[2021-09-28 08:00] VITALS: BP 122/84; PULSE 78; TEMP 98.5
--- NOTE | 2021-09-28 08:08 | NUR ---
Assessment completed, alert/oriented, vital signs stable, denies pain, she reports successful bowel prep overnight and that stool is still bloody but liquid, continue with miralax prep this morning and scheduled for Colonoscopy later today/ NPO/ consent signed, no stool at this time to observe but instructed her to call me next time she goes to assess, tg 8.6 this morning, she is sitting up in bed at this time, denies other needs
[2021-09-28 11:05] VITALS: BP 109/77; PULSE 72; TEMP 98
[2021-09-28 11:52] VITALS: BP 111/80; PULSE 70
[2021-09-28] MEDS ORDERED: PROTONIX 40MG T40 MG PO (13:56)
[2021-09-28] MEDS ORDERED: FERRO-TIME325 MG PO (13:57)
--- NOTE | 2021-09-28 17:45 | NUR ---
Discharge orders discussed, instructed to follow up with PCP/GI and have labs drawn as scheduled for her, instructed to advance diet as toelrated, instructed to take meds as prescribed/ scripts sent to pharmacy for her, IV and tele removed, SANDBLASTER GLASS escorted her out the door
== END 2021-09-28 17:46 | disposition home or self-care (01) | DRG 379 ==
LOC: COL.ER 13:24 → MEDICAL 15:03
PROVIDERS: Internal Medicine Gastroenterology; Nurse Practitioner Primary Care; Physician Assistant; Student in an Organized Health Care Education/Training Program; ADMIT Internal Medicine
PROC: 0DJ08ZZ Inspection of Upper Intestinal Tract, Via Natural or Artificial Opening Endoscopic (ICD-10-PCS; principal; 2021-09-27 12:00)
PROC: 0DJD8ZZ Inspection of Lower Intestinal Tract, Via Natural or Artificial Opening Endoscopic (ICD-10-PCS; 2021-09-28)
DX: K28.4 Chronic or unspecified gastrojejunal ulcer with hemorrhage (principal); I10 Essential (primary) hypertension; E11.9 Type 2 diabetes mellitus without complications; J45.909 Unspecified asthma, uncomplicated; F17.210 Nicotine dependence, cigarettes, uncomplicated; K21.9 Gastro-esophageal reflux disease without esophagitis; E03.9 Hypothyroidism, unspecified; I25.10 Atherosclerotic heart disease of native coronary artery without angina pectoris; F39 Unspecified mood [affective] disorder; D50.0 Iron deficiency anemia secondary to blood loss (chronic); K57.90 Diverticulosis of intestine, part unspecified, without perforation or abscess without bleeding; Z96.642 Presence of left artificial hip joint; Z96.653 Presence of artificial knee joint, bilateral; Z79.82 Long term (current) use of aspirin; Z79.84 Long term (current) use of oral hypoglycemic drugs; Z23 Encounter for immunization
CPT/HCPCS: 99232-AI; 99239; C9113; J2704; J7030; Q9967

== ENCOUNTER → 2024-02-06 | Outpatient (CLI) | payer MEDICARE, MEDICAID ==
[~2024-02-06] MED LIST changes: +ASPIRIN 81M81 MG/TA2 PO; +CARAFATE S1 GM/10 ML; +COREG12.5 MG; +EUTHYROX25 MCG PO; +FERRO-TIME325 MG PO; +LAMICTAL 100MG100 MG PO; +MIRAPEX 1MG; +NORVASC2.5 MG PO; +PROZAC60 MG
== END ==
LOC: COL.RAD 13:28
DX: M79.89 Other specified soft tissue disorders (principal)